=== PATIENT | female | born 1980 | race Two or more races ===

== ENCOUNTER 2020-12-10 15:23 | Emergency (ER) | payer BC ==
[~2020-12-10] VITALS: Ht 170.2 cm; Wt 57.2 kg
[2020-12-10] MEDS ORDERED: AMOX500C2 PO (15:49)
--- NOTE | 2020-12-10 15:49 | NUR ---
PT CAME TO ER C/O WORSENING SORE THROAT X 6 DAYS. A&OX4. BREATHING EVEN AND UNLABOED. PULSES 2+ BILATERALLY.
[2020-12-10 16:11] VITALS: BP 114/83
== END 2020-12-10 16:12 | disposition home or self-care (01) ==
LOC: ER 16:02
DX: J02.0 Streptococcal pharyngitis (principal); F17.200 Nicotine dependence, unspecified, uncomplicated; Z60.2 Problems related to living alone; Z79.899 Other long term (current) drug therapy

== ENCOUNTER 2020-12-13 08:11 | Emergency (ER) | payer BC ==
[~2020-12-13] VITALS: Ht 170.2 cm; Wt 76.2 kg
[~2020-12-13 08:11] MED LIST: AMOX500C2 PO
--- NOTE | 2020-12-13 09:31 | NUR ---
TO ER BED 4, BIB SELF C/O YELLOWISH DISCOLORATION OF THE SKIN AND EYES X 2 DAYS, ON ANTIBIOTIC FOR STREP, C/O ALSO COMPLAINS OF FATIGUE X3DAYS. AAOX3, BREATHING EVEN AND NON LABORED
[2020-12-13] MEDS ORDERED: ONDANSETRON HCL/PF 4 MG/2 ML VIAL IVP ONE (10:00)
[2020-12-13] MEDS ORDERED: IV NS 0.9% 1,000 ML BAG IV ONE (10:00)
[2020-12-13] MEDS ORDERED: ONDANSETRON HCL/PF 4 MG/2 ML VIAL ONE (10:00)
--- NOTE | 2020-12-13 10:15 | NUR ---
MONO SWAB DONE AND SENT
[2020-12-13 10:35] LABS: BASOPHILS # (AUTO) 0.1 K/uL (0.0-0.2); LYMPHOCYTES # (AUTO) 7.7 K/uL (0.8-4.8); WHITE BLOOD COUNT (AUTO) 11.3 K/uL (4.3-11.0)
[2020-12-13 10:57] LABS: BASOPHILS % (AUTO) 1.1 % (0.0-2.0); BILIRUBIN,TOTAL 6.3 mg/dL (0.2-1.0); CALCIUM, SERUM 9.1 mg/dL (8.5-10.1); CREATININE 0.7 mg/dL (0.6-1.3); EOSINOPHILS % (AUTO) 0.1 % (0.0-6.0); HEMATOCRIT 33 % (33-45); HEMOGLOBIN 10.5 g/dL (11.5-14.8); MEAN CORPUSCULAR HGB CONC 32 g/dl (31.0-36.0); MEAN CORPUSCULAR VOLUME 59 fL (82-100); MONOCYTES # (AUTO) 0.8 K/uL (0.1-1.30); MONOCYTES % (AUTO) 6.8 % (2.0-12.0); NEUTROPHILS # (AUTO) 2.7 K/uL (1.8-8.9); PLATELET COUNT (AUTO) 240 K/uL (150-450); POTASSIUM 3.4 mmol/L (3.5-5.1); RED BLOOD CELL COUNT(AUTO) 5.53 MIL/uL (4.0-5.2); TOTAL PROTEIN, SERUM 7.2 g/dL (6.4-8.2)
[2020-12-13] MEDS ORDERED: Thiamine 100 MG in IV D5W 50 ML IV SCH (12:00)
[2020-12-13 13:42] LABS: MONOTEST POSITIVE (NEGATIVE)
--- NOTE | 2020-12-13 13:54 | NUR ---
IV removed. Catheter intact and site benign. Pressure and 4x4 applied to site. No bleeding noted.Patient discharged to home in stable condition. Written and verbal after care instructions given. Patient verbalizes understanding of instruction.
[2020-12-13 14:15] VITALS: BP 116/75
[2020-12-13 18:00] LABS: BAND % (MANUAL) 4 % (0.0-5.0); LYMPHOCYTES % (MANUAL) 52 % (16-48); MONOCYTES % (MANUAL) 9 % (0-11.0); NEUTROPHILS % (MANUAL) 32 (42-76); REACTIVE LYMPHOCYTES 3 % (0-0)
== END 2020-12-13 14:15 | disposition home or self-care (01) ==
LOC: ER 08:14
DX: B27.80 Other infectious mononucleosis without complication (principal); B17.9 Acute viral hepatitis, unspecified; F17.200 Nicotine dependence, unspecified, uncomplicated; Z60.2 Problems related to living alone; Z79.899 Other long term (current) drug therapy
CPT/HCPCS: 36415; 80048; 80074; 80076; 83690; 85007; 85025; 86308; 96361; 96365; 96375; 99284; J2405; J3411; J7030; J7060